=== PATIENT | female | born 1965 | race American Indian/Alaskan Native ===

== ENCOUNTER 2016-08-21 10:13 | Outpatient (CLI) | payer OTHER ==
--- NOTE | 2016-08-21 16:31 | Mammography Report ---
BILATERAL DIGITAL SCREENING MAMMOGRAM : 08/21/16 10:13:00 CLINICAL: Routine screening. COMPARISON:07/29/14 FINDINGS: There are bilateral scattered areas of fibroglandular density.No mass, architectural distortion or suspicious calcifications. IMPRESSION: No mammographic evidence of malignancy. BI-RADS CATEGORY: 1 -- Negative RECOMMENDATION: Routine mammographic screening in one year. COMMENT: Patient follow-up letters are generated by our [employer] application.
== END 2016-08-21 10:14 | disposition home or self-care (01) ==
LOC: SPVWC 10:13
PROVIDERS: ATTEND Family Medicine
DX: Z12.31 Encounter for screening mammogram for malignant neoplasm of breast (principal)
CPT/HCPCS: 77067; G0202

== ENCOUNTER 2021-11-26 16:35 | Emergency (ER) | payer OTHER ==
[2021-11-26] MEDS ORDERED: KETOROLAC 30 MG/1 ML INJ IM ONE (19:45)
--- NOTE | 2021-11-26 20:09 | XRay Report ---
LUMBOSACRAL SPINE, 3 VIEWS INDICATION / CLINICAL INFORMATION: back pain. COMPARISON: None available. FINDINGS: Vertebral body heights and disc spaces are maintained. Alignment is normal. No suggestion for fractur e or malalignment. No significant degenerative disease is noted. IMPRESSION: No significant osseous abnormality. Signer Name: Martha Kevin MD Signed: 11/26/2021 8:05 PM Workstation Name: [id number]
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
[2021-11-26 21:29] VITALS: BP 174/62
== END 2021-11-26 21:30 | disposition home or self-care (01) ==
LOC: ED 16:35
DX: M54.2 Cervicalgia (principal); M54.50 Low back pain, unspecified; E11.9 Type 2 diabetes mellitus without complications; Z98.890 Other specified postprocedural states; Z90.49 Acquired absence of other specified parts of digestive tract; Z88.5 Allergy status to narcotic agent; Z79.899 Other long term (current) drug therapy; V87.7XXA Person injured in collision between other specified motor vehicles (traffic), initial encounter; Y93.89 Activity, other specified; Y92.488 Other paved roadways as the place of occurrence of the external cause; Y99.8 Other external cause status
CPT/HCPCS: 72100; 96372; 99283; J1885